=== PATIENT | female | born 1950 | race Caucasian/White ===

== ENCOUNTER 2016-07-20 23:23 | Observation (INO) ==
[2016-07-20 23:48] LABS: Basophils % 0.3 %; Eosinophils # 0.3 K/mcL (0.0-0.6); Eosinophils % 3.8 %; Hematocrit 35.3 % (35.3-44.9); Hemoglobin 10.9 g/dL (11.5-15.4); Immature Granulocytes % 0.1 % (0-4); Lymphocytes # 3.2 K/mcL (0.6-4.6); Lymphocytes % 40.3 %; Mean Corpuscular HGB Conc 30.9 g/dL (31.6-35.5); Mean Corpuscular Hemoglobin 26.5 pg (28.0-33.3); Mean Corpuscular Volume 85.9 fL (83.0-100.0); Mean Platelet Volume 9.5 fL (9.4-12.4); Monocytes # 0.5 K/mcL (0.0-1.3); Monocytes % 6.3 %; Neutrophils # 3.9 K/mcL (1.6-8.9); Platelet Count 261 K/mcL (140-400); Red Blood Count 4.11 M/mcL (3.82-4.97); Red Cell Distribution Width 14.3 % (11.5-14.5); Segmented Neutrophils % 49.2 %
[2016-07-20 23:58] LABS: Prothrombin Time 10.4 Seconds (9.4-12.1)
[2016-07-21] LABS: BUN/Creatinine Ratio 19 (6-26); Blood Urea Nitrogen 16 mg/dL (7-20); Calcium 9.2 mg/dL (8.6-10.8); Carbon Dioxide 20 mEq/L (19-29); Chloride 109 mEq/L (98-109); Glucose 118 mg/dL (70-99); Osmolality,Calculated 288 (280-300); Potassium 3.7 mEq/L (3.5-4.5); Sodium 138 mEq/L (136-145); eGFR For African Americans > 60 (> 60); eGFR For Non-African Americans > 60 (> 60)
[2016-07-21 00:01] LABS: Activated Partial Thrombo Time 26.8 Seconds (26.0-36.0)
--- NOTE | 2016-07-21 00:21 | Emergency Department Note ---
Disposition Clinical Impression: Atypical chest pain Disposition: Admitted As Inpatient Condition: Good Time of Disposition: 01:30 Chest Pain HPI - General Chief Complaint: ED Chest Pain Stated Complaint: chest pain//off and on since last night Time Seen by Provider: 07/20/16 23:43 Source: patient Limitations: no limitations Vital Signs Reviewed: Yes Nursing Notes Reviewed: Yes - History of Present Illness HPI Narrative: 66-year-old female presents complaining of left sided chest pain. She states that she is seen by Dr. Escobar and has been worked up for this chest pain recently. Last night she began experiencing sharp pain that went through to her back. It would last for 15 minutes or 1-2 hours and then subside. It returned intermittently throughout the night, causing sharp pain that took her breath away. It awoke her several times from her sleep. This morning she called her PCP and Dr. Escobar's office and was advised to seek care in the ER. The patient states that she came to town and the pain subsided so she waited to seek care. She states that the pain returned this evening and was worse. She took a Nitro SL about 1/2 hour [employer]PL[employer] which relieved the pain somewhat. The pain is a pressure in the left anterior chest. It goes through to her back and now is going down the left arm and up into the left neck. There is associated sob, ABREU and mild nausea with her pain. She denies dizziness, abdominal pain, fevers, chills, dysuria, diarrhea. She has a history of CVA in 2015 and she states that her ABREU feels similar to this episode. She has no history of AZ, but does have a family history of AZ in her mother at age 53. Severity scale (1-10): 4 - Related Data Home Medications Medication Instructions Recorded Confirmed Albuterol Sulfate [Albuterol 2 puff IH Q4HR PRN 03/21/15 07/21/16 Inhaler] Budesonide/Formoterol 160/4.5 2 puff IH BIDR 03/21/15 07/21/16 [Symbicort] Dexlansoprazole [Dexilant] 60 mg PO DAILY 03/21/15 07/21/16 Levothyroxine [Synthroid] 50 mcg PO DAILY 03/21/15 07/21/16 Metoprolol XL (24 HR) Succ [Toprol 25 mg PO DAILY 03/21/15 07/21/16 XL] Nitroglycerin [Nitrostat] 0.4 mg SL Q5-6MIN PRN 03/21/15 07/21/16 Ranitidine HCl [Zantac] 150 mg PO HS #0 04/04/15 07/21/16 Aspirin/Dipyridamole 1 each PO Q12H 05/12/15 07/21/16 [Aspirin-Dipyridam ER 25-200 mg] Topiramate [Topamax] 50 mg PO BID 05/12/15 07/21/16 Alprazolam [Xanax 1 MG Tablet] 1 mg PO BID PRN 03/08/16 07/21/16 Lovastatin [Mevacor] 40 mg PO DAILY 03/08/16 07/21/16 Sertraline [Zoloft] 100 mg PO DAILY 03/08/16 07/21/16 Allergies Allergy/AdvReac Type Severity Reaction Status Date / Time ibuprofen [From Motrin] Allergy Hives Verified 04/03/15 20:52 All systems ED: reviewed and negative except as stated. Chest Pain PMH - Past Medical History Medical history: Reports: asthma, coronary artery disease, hyperlipidemia, hypertension, syncope, TIA, other Surgical history: Reports: cancer surgery, cholecystectomy, hysterectomy, orthopedic, other, other Psychiatric history: Reports: anxiety, depression [employer] WORK[employer] history: Reports: no [employer] WORKER history - Social History Smoking Status: Former smoker Alcohol use: Reports: none Drug use: Reports: none Physical Exam General: Alert and in no acute distress Skin: Warm, dry, intact Head: Normocephalic and atraumatic Eye: PERRLA, EOMI Neck: Supple, trachea midline and no tenderness Cardiovascular: RRR, no murmur, normal perfusion, peripheral pulses equal b/l UE /LE. Tenderness to palpation of left anterior chest wall Respiratory: mild expiratory wheezing posteriorly on the right, no cough or respiratory distress GI: Soft, nontender, nondistended. Bowel sounds present Musculoskeletal: Muscle strength 5/5, no tenderness, swelling or deformity Neuro: A&O to person, place, time and situation. No focal deficits noted on exam Psychiatric: Cooperative and appropriate mood and affect - General Limitations: no limitations General appearance: alert Course Course Narrative: 66-year-old female presents complaining of left sided chest pain. She states that she is seen by Dr. Escobar and has been worked up for this chest pain recently. Last night she began experiencing sharp pain that went through to her back. It would last for 15 minutes and then subside. It returned intermittently throughout the night, causing sharp pain that took her breath away. It awoke her several times from her sleep. This morning she called her PCP and Dr. Escobar's office and was advised to seek care in the ER. The patient states that she came to town and the pain subsided so she waited to seek care. She states that the pain returned this evening and was worse. She took a Nitro SL about 1/2 hour [employer] which relieved the pain somewhat. The pain is a pressure in the left anterior chest. It goes through to her back and now is going down the left arm and up into the left neck. There is associated sob, ABREU and mild nausea with her pain. She denies dizziness, abdominal pain, fevers, chills, dysuria, diarrhea. She has a history of CVA in 2015 and she states that her ABREU feels similar to this episode. She has no history of AZ, but does have a family history with mother having an AZ at age 53. Exam unremarkable, patient in NAD. CP returned during examination. Will do CP workup. Continues to have intermittent CP. Will give ASA and SL nitro. Heart Score is 5. Can not r/o her heart as source of pain. Discussed with patient that she will most likely be admitted for CP r/o and observation overnight and see cardiology tomorrow. Discussed admission with hospitalist, patient will be admitted. Discussed admission with the patient and her who are agreeable to the plan. All questions were answered. - Reevaluation(s) Reevaluation #1: Patient continues to have intermittent chest pain going through to her back and down into her left arm. She describes them as pressure that feels like she twisted her shoulder. Time: 00:59 - Consultations Consultation #1: Discussed the patient's case with Dr. Encarnacion, who has accepted the patient for admission to the hospitalist service. Time: 01:10 Vital Signs Temperature 97.9 F 07/20/16 23:25 Pulse Rate 83 07/20/16 23:25 Respiratory Rate 18 07/20/16 23:25 Blood Pressure 175/85 07/20/16 23:25 O2 Sat by Pulse Oximetry 98 07/20/16 23:25 Temperature 98.1 F 07/21/16 02:18 Pulse Rate 65 07/21/16 02:18 Respiratory Rate 16 07/21/16 02:18 Blood Pressure 108/69 07/21/16 04:35 O2 Sat by Pulse Oximetry 95 07/21/16 02:18 Oxygen Delivery Oxygen Delivery Room Air Chest Pain - Medical Records Medical records reviewed: Yes I reviewed the patient's medical records. - Lab Data Lab results reviewed: Yes I reviewed the patient's lab results. Result diagrams: 07/20/16 23:38 07/20/16 23:38 Lab Results 07/20/16 07/20/16 07/20/16 Range/Units 23:38 23:38 23:38 WBC 8.0 (4.3-11.1) K/mcL RBC 4.11 (3.82-4.97) M/mcL Hgb 10.9 L (11.5-15.4) g/dL Hct 35.3 (35.3-44.9) % MCV 85.9 (83.0-100.0) fL MCH 26.5 L (28.0-33.3) pg MCHC 30.9 L (31.6-35.5) g/dL RDW 14.3 (11.5-14.5) % Plt Count 261 (140-400) K/mcL MPV 9.5 (9.4-12.4) fL Immature Gran % 0.1 (0-4) % Seg Neutrophils % 49.2 % Lymphocytes % 40.3 % Monocytes % 6.3 % Eosinophils % 3.8 % Basophils % 0.3 % Neutrophils # 3.9 (1.6-8.9) K/mcL Lymphocytes # 3.2 (0.6-4.6) K/mcL Monocytes # 0.5 (0.0-1.3) K/mcL Eosinophils # 0.3 (0.0-0.6) K/mcL Basophils # 0.0 (0.0-0.2) K/mcL PT 10.4 (9.4-12.1) Seconds INR 1.0 APTT 26.8 (26.0-36.0) Seconds Sodium 138 (136-145) mEq/L Potassium 3.7 (3.5-4.5) mEq/L Chloride 109 (98-109) mEq/L Carbon Dioxide 20 (19-29) mEq/L BUN 16 (7-20) mg/dL Creatinine 0.86 (0.57-1.11) mg/dL Est GFR ( Amer) > 60 (> 60) Est GFR (Non-Af Amer) > 60 (> 60) BUN/Creatinine Ratio 19 (6-26) Glucose 118 H (70-99) mg/dL Calculated Osmolality 288 (280-300) Calcium 9.2 (8.6-10.8) mg/dL Troponin I (0-0.03) ng/mL 07/20/16 Range/Units 23:38 WBC (4.3-11.1) K/mcL RBC (3.82-4.97) M/mcL Hgb (11.5-15.4) g/dL Hct (35.3-44.9) % MCV (83.0-100.0) fL MCH (28.0-33.3) pg MCHC (31.6-35.5) g/dL RDW (11.5-14.5) % Plt Count (140-400) K/mcL MPV (9.4-12.4) fL Immature Gran % (0-4) % Seg Neutrophils % % Lymphocytes % % Monocytes % % Eosinophils % % Basophils % % Neutrophils # (1.6-8.9) K/mcL Lymphocytes # (0.6-4.6) K/mcL Monocytes # (0.0-1.3) K/mcL Eosinophils # (0.0-0.6) K/mcL Basophils # (0.0-0.2) K/mcL PT (9.4-12.1) Seconds INR APTT (26.0-36.0) Seconds Sodium (136-145) mEq/L Potassium (3.5-4.5) mEq/L Chloride (98-109) mEq/L Carbon Dioxide (19-29) mEq/L BUN (7-20) mg/dL Creatinine (0.57-1.11) mg/dL Est GFR ( Amer) (> 60) Est GFR (Non-Af Amer) (> 60) BUN/Creatinine Ratio (6-26) Glucose (70-99) mg/dL Calculated Osmolality (280-300) Calcium (8.6-10.8) mg/dL Troponin I 0.00 (0-0.03) ng/mL - Radiology Data Radiology results reviewed: Yes I reviewed the patient's radiology results. Chest X-Ray 07/21/16 23:42 IMPRESSION: No acute process. D/ / Anila Lizarraga MD / Anila Lizarraga MD Interpreting Provider: Anila Lizarraga MD - EKG Data EKG attestation: Yes I reviewed and interpreted this EKG. EKG shows normal: sinus rhythm Rhythm: NSR When compared to previous EKG there are: no significant changes Interpretation: unchanged when compared to prior tracing (date) Heart Score - Score History: Highly Suspicious EKG: Normal Age: 45-65 Risk Factors: Equal/Greater than 3 risk factor or history of atherosclerotic disease Troponin: Less than normal limit HEART Score Total: 5 Attestation Statement - Attestation Attestation: For this encounter, I have reviewed the resident, [employer] WORKER, or PA documentation, treatment plan, and medical decision making; and I have had face to face time with this patient. 66-year-old female presents with chest pain intermittently over the past 24 hours. Patient states the pain is a pressure in the center of her chest. Patient reports the pain radiates to her back, into her neck and down the left arm. Patient states she has been following with Dr. Escobar regarding her cardiac care. She states she had a cardiac catheterization which revealed blockage of her coronary arteries in the past. Patient's initial troponin is negative. ECG shows a normal sinus rhythm of 69 without evidence of STEMI or ischemia. We will admit the patient to the hospitalist for further care and evaluation of her chest pain.
[2016-07-21] MEDS ORDERED: Aspirin 81 MG TAB.CHEW PO ONE ×2 (00:57→01:15)
[2016-07-21] MEDS ORDERED: Nitroglycerin 0.4 MG TAB.SUBL SL ONE (00:57)
[2016-07-21] MEDS: Nitroglycerin 0.4 MG TAB.SUBL SL ONE ×2 (01:14→01:19)
[2016-07-21] MEDS ORDERED: *HR* Enoxaparin 100 MG/ML SYRINGE SQ ONE (02:51)
--- NOTE | 2016-07-21 02:54 | Internal Med History&Physical ---
Date of Encounter: 07/21/16 Time of Encounter: 02:52 Assessment and Plan (1) Chest pain Current visit: Yes Status: Acute Will rule out acute coronary syndrome. Initial electrocardiogram shows no ST segment shifts. Initial troponin normal. Which are 2 more sets of cardiac markers. Cardiology service to see the patient. Her pain is somewhat concerning for angina especially in the setting of known moderate coronary disease 4 years ago and therefore I will give the patient one dose of Lovenox full dose until we trend troponin. Continue aspirin and beta sandra Qualifiers: Qualified Code(s): R07.9 - Chest pain, unspecified (2) Hypertension Current visit: No Status: Chronic Continual home blood pressure medication Qualifiers: Hypertension type: essential hypertension Qualified Code(s): I10 - Essential (primary) hypertension Internal Medicine - H&P: HPI Chief complaint: chest pain History of present illness: Ms. Bocanegra is a 66 year old female with past medical history of coronary artery disease where the coronary angiogram in 2012 showing a single vessel disease from 50 to 60% stenosis presents to the emergency room today with chest pain. While the patient was sitting down she started experiencing left shoulder pain radiating to left arm initially thought it was [place]'s complete the pain however she noted no worsening of the pain with our movement. She noted some shortness of breath with the pain but denies any sweating or nausea.. She has taken sublingual nitroglycerin with 50% improvement in the pain. She was off pain during my interview. She denies any cough expectoration. No worsening of pain with inspiration. She denies getting chest pain with exertion. Past Med Surg Social Fam HX - Past Medical History Medical history: asthma, coronary artery disease, hyperlipidemia, hypertension, syncope, TIA, other Psychiatric history: anxiety, depression - Past Surgical History Surgical History: cancer surgery, cholecystectomy, hysterectomy, orthopedic, other, other - Social History Smoking Status: Former smoker Smokeless Tobacco Status: No Alcohol use: none Drug use: none - Family History Brother Living Status: Age at : 56 Cause of : Brain Tumor Sister Living Status: Age at : 71 Cause of : Pneumonia Mother Living Status: Age at : 53 Cause of : NC Hx Family Cardiac Disorders: Yes Hx Family Respiratory Disorders: Yes Hx Family Endocrine Disorder: Yes (DIABETES) Father Living Status: Age at : 53 Cause of : Emphysema Hx Family Cardiac Disorders: Yes Hx Family Respiratory Disorders: Yes Hx Family Endocrine Disorder: Yes Internal Medicine - H&P: Meds Albuterol Sulfate [Albuterol Inhaler] 2 puff IH Q4HR PRN 03/21/15 [History] Budesonide/Formoterol 160/4.5 [Symbicort] 2 puff IH BIDR 03/21/15 [History] Dexlansoprazole [Dexilant] 60 mg PO DAILY 03/21/15 [History] Levothyroxine [Synthroid] 50 mcg PO DAILY 03/21/15 [History] Metoprolol XL (24 HR) Succ [Toprol XL] 25 mg PO DAILY 03/21/15 [History] Nitroglycerin [Nitrostat] 0.4 mg SL Q5-6MIN PRN 03/21/15 [History] Ranitidine HCl [Zantac] 150 mg PO HS #0 04/04/15 [History] Aspirin/Dipyridamole [Aspirin-Dipyridam ER 25-200 mg] 1 each PO Q12H 05/12/15 [ History] Topiramate [Topamax] 50 mg PO BID 05/12/15 [History] Alprazolam [Xanax 1 MG Tablet] 1 mg PO BID PRN 03/08/16 [History] Lovastatin [Mevacor] 40 mg PO DAILY 03/08/16 [History] Sertraline [Zoloft] 100 mg PO DAILY 03/08/16 [History] Allergies ibuprofen [From Motrin] Allergy (Verified 04/03/15 20:52) Hives All Systems PM: A 10-system review of systems was performed and is negative for pertinent findings except as documented above in the HPI. Review of systems: 10 point review of systems is negative except for HPI - Constitutional Vitals: Temp Pulse Resp BP Pulse Ox 98.1 F 65 16 116/71 95 07/21/16 02:18 07/21/16 02:18 07/21/16 02:18 07/21/16 02:18 07/21/16 02:18 Exam: Gen.: patient is alert oriented times 3 kn in distress. Cardiac: normal S1 S2 no additional sounds are murmurs chest: clears auscultation bilaterally abdomen: soft nontender nondistended neck no JVD pupil 3 mm reactive Internal Med - H&P Results - Labs CBC & Chem 7: 07/20/16 23:38 07/20/16 23:38 - Impressions ITS Impressions Chest X-Ray 07/21/16 23:42 IMPRESSION: No acute process. D/ / Anila Lizarraga MD / Anila Lizarraga MD Interpreting Provider: Anila Lizarraga MD
[2016-07-21] MEDS ORDERED: ALPRAZolam 1 MG TABLET PO PRN (02:59)
[2016-07-21] MEDS: Nitroglycerin 0.4 MG TAB.SUBL SL SCH ×2 (04:29→08:02)
[2016-07-21] MEDS ORDERED: *HR* Enoxaparin 40 MG/0.4 ML SYRINGE SQ SCH (07:00)
[2016-07-21] MEDS ORDERED: Aspirin Enteric Coated 325 MG Tablet PO SCH (09:00)
[2016-07-21] MEDS ORDERED: Metoprolol XL (24 HR) Succ 25 MG TAB.ER.24H PO SCH (09:00)
[2016-07-21] MEDS ORDERED: (Dexlansoprazole [Dexilant] 60 MG) PO SCH (09:00)
[2016-07-21] MEDS ORDERED: Topiramate 25 MG TABLET PO SCH (09:00)
--- NOTE | 2016-07-21 09:25 | Cardiology Consult Note ---
Date of Encounter: 07/21/16 Time of Encounter: 08:30 Assessment and Plan (1) Atypical chest pain Current Visit: Yes Status: Acute Per cardiology: -Patient with atypical chest pain that occured at rest and lasted days. Patient had nuclear stress test September 2015 which was negative for ischemia. (CALLI) -Chest x-ray with no acute process. (CALLI) -Patient has known history of chest pressure that she has been following with Dr. Escobar. Patient currently on beta sandra. (CALLI) -Will order echocardiogram and D.Dimer. (CALLI) D-Dimer elevated in the 1400's, will check CT to r/o PE per discussion with Dr. Rolly Williamson (JT) -Further recommendations pending echocardiogram results. (CALLI) -Discussed and reviewed with Dr.John Williamson. (CALLI) (2) Elevated d-dimer Current Visit: Yes Status: Acute Per Cardiology: Again, d-dimer elevated in the 1400s. We'll check CT to rule out PE. Patient clinically stable with no hypoxia. (JT) (3) Coronary artery disease Current Visit: No Status: Chronic Per Cardiology: History of nonobstructive CAD. Last heart catheterization January 2013 showed mid LAD 40%, mid circumflex 20-30%, OM1 30-40%, ramus 50-60%, and mid RCA 20% stenosis. Patient had abnormal stress test at that time. Recent stress test negative for ischemia September 2015. On statin, asa, and beta sandra. (JT) Qualifiers: Coronary Disease-Associated Artery/Lesion type: robinson artery [place] vs. transplanted heart: unspecified whether robinson or transplanted heart Associated angina: angina presence unspecified Qualified Code(s): I25.10 - Atherosclerotic heart disease of robinson coronary artery without angina pectoris (4) Hypertension Current Visit: No Status: Chronic Per cardiology: -Patient with history of hypertension. Patient currently on beta sandra. (CALLI) -BPs this admission 100-120s systolic and 60-70s diastolic. (CALLI) -BPs currently stable. (CALLI) -Continue with current regimen. (CALLI) Qualifiers: Hypertension type: essential hypertension Qualified Code(s): I10 - Essential (primary) hypertension Discussion w patient/family: The assessment and plan as outlined above was discussed with the patient and/or family members who expressed understanding and agreement. All questions were answered. Thank you for involving us in the care of your patient. Please call with any questions. Discussed and reviewed with Dr.John Williamson. History of Present Illness Consult date: 07/21/16 Requesting physician: Derick Encarnacion Consult reason: chest pain Chief complaint: chest pain History of present illness: Ms. Bocanegra is a 66 year old female who presented to the ER yesterday evening with chest pain. Patient has been having pain since 07/19/2016 evening. Patient states she felt the pain was more "muscle pain," until yesterday evening when the pain became worse and radiated to her back and left shoulder blade. Patient denies any aggravating factors. Patient states she took a nitro sublingual at home and it did not relieve the pain. Patient states the ER gave her a second nitro, which relieved pain. Patient currently chest pain free. Patient states she was recently given nitro by the nurses on the floor for chest pain. (CALLI) She is a relevant past medical history of nonobstructive CAD, hyperlipidemia, hypertension, back pain, anxiety, Magallanes's esophagus, asthma, TIA. Patient reports for chronic midsternal chest pressure occurs one to 2 times per week and unchanged in frequency. She reports a squeezing sensation usually occurs at rest. Patient did have some midsternal chest soreness with palpation today. Again, with concerns now of left-sided shoulder and back pain-- she reports these episodes did not occur with her chronic chest pain symptoms. She describes as a stabbing sensation is intermittent over the past few days. All episodes have also occurred at rest. She follows with Dr. Escobar with cardiology. Denies any recent fever, chills, nausea, vomiting, diarrhea. Denies any cough. She denies any increased fatigue or dyspnea on exertion recently. (JT ) Past Med Surg Social Fam HX - Past Medical History Attestation: Yes The following information was validated with the patient. Source: patient, old records reviewed, obtained from family Medical history: asthma, coronary artery disease, hyperlipidemia, hypertension, syncope, TIA, other Psychiatric history: anxiety, depression - Past Surgical History Surgical History: cancer surgery, cholecystectomy, hysterectomy, orthopedic, other, other - Social History Smoking Status: Former smoker Smokeless Tobacco Status: No Alcohol use: none Drug use: none - Family History Brother Living Status: Age at : 56 Cause of : Brain Tumor Sister Living Status: Age at : 71 Cause of : Pneumonia Mother Living Status: Age at : 53 Cause of : CA Hx Family Cardiac Disorders: Yes Hx Family Respiratory Disorders: Yes Hx Family Endocrine Disorder: Yes (DIABETES) Father Living Status: Age at : 53 Cause of : Emphysema Hx Family Cardiac Disorders: Yes Hx Family Respiratory Disorders: Yes Hx Family Endocrine Disorder: Yes Medications and Allergies Albuterol Sulfate [Albuterol Inhaler] 2 puff IH Q4HR PRN 03/21/15 [History] Budesonide/Formoterol 160/4.5 [Symbicort] 2 puff IH BIDR 03/21/15 [History] Dexlansoprazole [Dexilant] 60 mg PO DAILY 03/21/15 [History] Levothyroxine [Synthroid] 50 mcg PO DAILY 03/21/15 [History] Metoprolol XL (24 HR) Succ [Toprol XL] 25 mg PO DAILY 03/21/15 [History] Nitroglycerin [Nitrostat] 0.4 mg SL Q5-6MIN PRN 03/21/15 [History] Ranitidine HCl [Zantac] 150 mg PO HS #0 04/04/15 [History] Aspirin/Dipyridamole [Aspirin-Dipyridam ER 25-200 mg] 1 each PO Q12H 05/12/15 [ History] Topiramate [Topamax] 50 mg PO BID 05/12/15 [History] Alprazolam [Xanax 1 MG Tablet] 1 mg PO BID PRN 03/08/16 [History] Lovastatin [Mevacor] 40 mg PO DAILY 03/08/16 [History] Sertraline [Zoloft] 100 mg PO DAILY 03/08/16 [History] Allergies ibuprofen [From Motrin] Allergy (Verified 04/03/15 20:52) Hives All Systems Review: A 10-system review of systems was performed and is negative for pertinent findings except as documented above in the HPI. - Cardiovascular Cardiovascular: chest pain at rest, leg edema - Musculoskeletal Musculoskeletal: back pain Physical Examination Vital Signs, Last 4 Hours Temp Pulse Resp BP Pulse Ox 07/21/16 08:22 14 96 07/21/16 08:01 65 16 128/73 07/21/16 07:29 97.6 F 84 17 104/61 94 L General: Conversant, No Apparent Distress HEENT: Atraumatic, Normocephaly, Mucus Membranes Moist Neck: No JVD Cardiac: Reg Rate and Rhythm, Normal S1 and S2, No Murmur Lungs: Normal Breath Sounds, No Wheeze, Rales, Rhonchi Neuro: Alert and responsive Abdomen: Soft, Non-Tender Skin: No rashes noted on visualized skin Musculoskeletal: No Chest Wall Tenderness Extremities: No Clubbing, No Cyanosis, Normal Pulses, Other (Mild bilateral non- pitting pedal edema. ) Results 07/20/16 23:38 07/20/16 23:38 Lab Results Laboratory Tests 07/20/16 07/20/16 07/21/16 23:38 23:38 09:19 INR 1.0 D-Dimer 1404 H Troponin I 0.00 ITS Impressions Chest X-Ray 07/21/16 23:42 IMPRESSION: No acute process. D/ / Anila Lizarraga MD / Anila Lizarraga MD Interpreting Provider: Anila Lizarraga MD Active Medications Albuterol Sulfate (Albuterol Inhaler) 2 puff IH [id number] [facility] Stop: 01/20/17 02:49 Last Admin: 07/21/16 08:19 Dose: 2 puff Alprazolam (Xanax) 1 mg PO BID PRN; Protocol PRN Reason: Anxiety Stop: 01/20/17 03:00 Budesonide/Formoterol Fumarate (Symbicort) 2 puff IH BIDR [facility] PRN Reason: Protocol Stop: 01/20/17 10:01 Last Admin: 07/21/16 08:19 Dose: 2 puff Dipyridamole/Aspirin (Aggrenox 25mg-200mg) 1 cap PO Q12H [facility] Stop: 01/20/17 03:01 Last Admin: 07/21/16 04:23 Dose: 1 cap Levothyroxine Sodium (Synthroid) 50 mcg PO DAILY [facility] Stop: 01/20/17 09:01 Last Admin: 07/21/16 09:44 Dose: 50 mcg Lovastatin (Mevacor) 40 mg PO DAILY JOHN Stop: 01/20/17 09:01 Last Admin: 07/21/16 09:45 Dose: 40 mg Metoprolol Succinate (Toprol Xl) 25 mg PO DAILY JOHN Stop: 01/20/17 09:01 Last Admin: 07/21/16 09:45 Dose: 25 mg Nitroglycerin (Nitroglycerin) 0.4 mg SL Q5MIN JOHN Stop: 01/20/17 02:49 Last Admin: 07/21/16 08:02 Dose: 0.4 mg Omeprazole (Prilosec) 20 mg PO HS JOHN Stop: 01/20/17 21:01 Pharmacy Profile Note (Patient Taking Own Medication) 1 each PO DAILY JOHN Stop: 01/20/17 09:01 Last Admin: 07/21/16 09:45 Dose: Not Given Sertraline HCl (Zoloft) 100 mg PO DAILY JOHN Stop: 01/20/17 09:01 Last Admin: 07/21/16 09:45 Dose: 100 mg Topiramate (Topamax) 50 mg PO BID JOHN Stop: 01/20/17 09:01 Last Admin: 07/21/16 09:45 Dose: 50 mg - Imaging and Cardiology Chest Xray: report reviewed Echo: pending - EKG Interpretation EKG results cardiology: personally reviewed, normal ECG, sinus rhythm, other ( Telemetry reviewed with average heart rate 67, sinus rhythm. Minimum heart rate 51 at 0546.) Consult Discharge Plan - Plan Referrals: Anastasiya Childress MD [Primary Care Provider] -
[2016-07-21] MEDS ORDERED: Budesonide/Formoterol 160/4.5 MDI IH SCH (10:00)
--- NOTE | 2016-07-21 10:44 | Electrocardiograph Report ---
[place] [id number] Test Date: 2016-07-20 Pat Name: Sosa Bocanegra Department: 103 Room: 3B23 Gender: F [employer]: : 1950 Requested By: Rolly Ponce Order Number: [id number] Reading MD: Anastasiya Williamson Measurements Intervals [place] Rate: 69 P: 44 VT: 176 QRS: -13 QRSD: 97 T: 26 QT: 379 QTc: 398 Interpretive Statements SINUS RHYTHM MINIMAL VOLTAGE CRITERIA FOR LVH, CONSIDER NORMAL VARIANT Electronically Signed On 07-21-2016 10:42:38 EST by Anastasiya Williamson
[2016-07-21 11:57] VITALS: BP 133/78
--- NOTE | 2016-07-21 14:34 | ECHO - Doppler Report ---
Echocardiogram Name: Sosa Bocanegra Date of Study: 07/21/2016 Date: 1950 Ht: 62.0 in Medical Record#: [id number] Age: 66 Wt: 222.0 lb Gender: Female BSA: 2 Order #: [id number] Location: [facility] Room #: 3B23 Reading Physician: Keith Escobar DO, QUINTEN, JOHNY MAYNARD [place]: TOM BarcenasT, RDJOHANNA Ordering Physician: Hattie Macias CNP Primary Physician: Anastasiya Childress MD Indications: Chest pain Impressions: Technically sub-optimal due to poor echocardiographic windows. LVEF 60-65%. Normal LV chamber size, wall thickness and function. Normal right ventricular structure and function. Mild left ventricular diastolic dysfunction. No evidence of pulmonary hypertension. No significant valvular dysfunction. Left Ventricular Wall Motion: Rest Echo Findings All wall segments showed normal motion. Findings: Study Quality * Technically sub-optimal due to poor echocardiographic windows. ECG Findings * Normal sinus rhythm. Left Ventricle * LVEF 60-65%. * Normal LV chamber size, wall thickness and function. * Mild left ventricular diastolic dysfunction. Right Ventricle * Normal right ventricular structure and function. Left Atrium * Mildly dilated left atrium. Right Atrium * Normal right atrial size. Interatrial Septum * Interatrial septum not well evaluated. Aortic Valve * Aortic valve not well visualized. * No aortic regurgitation. * No aortic stenosis. Mitral Valve * Normal mitral valve structure and function. * No mitral regurgitation. * No mitral stenosis. Tricuspid Valve * Normal tricuspid valve structure and function. * Trace tricuspid regurgitation. * No evidence of pulmonary hypertension. Pulmonic Valve * Pulmonic valve not well visualized. Aorta * Normally sized aortic root. Pericardium * The pericardium appears normal. IVC * Normal IVC dimensions and inspiratory collapse. Pulmonary Artery * Pulmonary artery not well visualized. History Hypertension Hypercholesteremia Family History of CAD 2015 a Previous Echo was performed. Measurements: BP: 133/ 78 2D Normal Values IVSd: .90 cm 0.6 - 1.0 cm LVIDd: 4.60 cm 3.7 - 5.6 cm LVPWd: .80 cm 0.6 - 1.1 cm LVIDs: 2.80 cm 1.5 - 3.6 cm AO: 2.30 cm < 4.0 cm LA: 3.10 cm 2.0 - 4.0cm %FS: 39.10 cm >25 % LA volume: 43 Mitral Valve Peak E:.73 m/sec Peak A:.86 m/sec E/A Ratio:0.8 Tricuspid Valve TV Regurg Peak Grad: 21.00mmHg TV Regurg Peak Timmy: 2.30m/sec Updated by Keith Escobar DO, QUINTEN, CAESAR, JOHNY on 07/21/2016 2:27:07 PM electronically signed on 07/21/2016 2:28:29 PM with status of Final Wall Motion [place]: 1=Normal, 2=Hypokinesis, 3=Akinesis, 4=Dyskinesis, 5=Aneurysmal, 6=Hyperkinetic, X=Not Visualized (Blank)=Missing
--- NOTE | 2016-07-21 15:05 | Event Note ---
Date of Encounter: 07/21/16 Time of Encounter: 15:00 - Cardiology Event Note CT scan negative for PE, showed small groundglass opacity right lower lobe-- discussed with primary service. Further recommendations per primary team. Echo showed EF preserved 6065%, no significant valvular dysfunction, no segmental wall motion abnormalities. Will add Imdur 30 mg by mouth daily. Cardiology signing off, re-consult as needed, follow-up in outpatient setting-- scheduled.
--- NOTE | 2016-07-21 15:21 | Discharge Summary ---
Date of Encounter: 07/21/16 Time of Encounter: 15:00 - Discharge Diagnosis (1) Atypical chest pain Priority: Primary Status: Resolved Comments: Patient denied chest pain at time of discharge. Chest x-ray negative. Chest CTA negative for acute processes. Echocardiogram unremarkable with ejection fraction of 60-65% and mild diastolic dysfunction. Seen and evaluated by cardiology who cleared her for outpatient follow-up and added Imdur to her regimen. (2) Elevated d-dimer Priority: Primary Status: Ruled-out (3) DVT prophylaxis Priority: Primary Status: Acute Comments: Observation patient. Up ad fabiano. (4) Asthma Priority: Secondary Status: Chronic Comments: No acute exacerbation Qualifiers: Asthma severity: unspecified severity Asthma complication type: uncomplicated Qualified Code(s): J45.909 - Unspecified asthma, uncomplicated (5) COPD (chronic obstructive pulmonary disease) Priority: Secondary Status: Chronic Comments: No acute exacerbation. Former tobacco abuse. Qualifiers: COPD type: unspecified COPD Qualified Code(s): J44.9 - Chronic obstructive pulmonary disease, unspecified (6) Carotid arterial disease Priority: Secondary Status: Chronic Comments: Carotid duplex from 02/27/16 impressions revealing right distal ICA with severe 60-79% stenosis with left system nonstenotic plaque. Recommend follow-up outpatient, continue statin, low cholesterol diet Qualifiers: Laterality: unspecified laterality Qualified Code(s): I77.9 - Disorder of arteries and arterioles, unspecified (7) Coronary artery disease Priority: Secondary Status: Chronic Qualifiers: Coronary Disease-Associated Artery/Lesion type: lummi artery [place] vs. transplanted heart: unspecified whether lummi or transplanted heart Associated angina: angina presence unspecified Qualified Code(s): I25.10 - Atherosclerotic heart disease of lummi coronary artery without angina pectoris (8) Hyperlipidemia Priority: Secondary Status: Chronic Qualifiers: Hyperlipidemia type: unspecified Qualified Code(s): E78.5 - Hyperlipidemia , unspecified (9) Hypertension Priority: Secondary Status: Chronic Comments: Controlled, follow-up outpatient Qualifiers: Hypertension type: essential hypertension Qualified Code(s): I10 - Essential (primary) hypertension (10) PVD (peripheral vascular disease) Priority: Secondary Status: Chronic (11) Morbid obesity with BMI of 40.0-44.9, adult Priority: Secondary Status: Chronic - Discharge Medications Prescriptions: Isosorbide MONOnitrate (24 HR) [Imdur] 30 mg PO DAILY #30 tab.er.24h Home Medications: Albuterol Sulfate [Albuterol Inhaler] 2 puff IH Q4HR PRN 03/21/15 [History] Budesonide/Formoterol 160/4.5 [Symbicort] 2 puff IH BIDR 03/21/15 [History] Dexlansoprazole [Dexilant] 60 mg PO DAILY 03/21/15 [History] Levothyroxine [Synthroid] 25 mcg PO DAILY 03/21/15 [History] Metoprolol XL (24 HR) Succ [Toprol XL] 25 mg PO DAILY 03/21/15 [History] Nitroglycerin [Nitrostat] 0.4 mg SL Q5-6MIN PRN 03/21/15 [History] Ranitidine HCl [Zantac] 150 mg PO HS #0 04/04/15 [History] Aspirin/Dipyridamole [Aspirin-Dipyridam ER 25-200 mg] 1 tab PO Q12H 05/12/15 [ History] Topiramate [Topamax] 25 mg PO BID 05/12/15 [History] Alprazolam [Xanax 1 MG Tablet] 1 mg PO BID PRN 03/08/16 [History] Lovastatin [Mevacor] 40 mg PO DAILY 03/08/16 [History] Sertraline [Zoloft] 100 mg PO DAILY 03/08/16 [History] Amlodipine [Norvasc] 10 mg PO DAILY 07/21/16 [History] Isosorbide MONOnitrate (24 HR) [Imdur] 30 mg PO DAILY #30 tab.er.24h 07/21/16 [ Rx] Allergies/Adverse Reactions: Allergies ibuprofen [From Motrin] Allergy (Verified 04/03/15 20:52) Hives gabapentin Adverse Reaction (Verified 07/21/16 12:59) Confusion pregabalin [From Lyrica] Adverse Reaction (Verified 07/21/16 12:59) See Comments PATIENT GAINED WEIGHT AND WATER WEIGHT Procedures/tests Complete & Pending: Procedures Performed prior 72 hours Category Date Time Status CT angio chest [CT] Routine Cat Scan 07/21/16 11:30 Draft EV echocardiogram Routine Y 07/21/16 09:03 Completed Date of admission: 07/21/16 01:34 Primary care physician: Anastasiya Cabrera Consults: 07/21/16 02:47 Consult to Cardiology [CONS] Routine Comment: neg stress 09/26. NPO pending recommendations Consulting Provider: Yael Barrientos Reason for Consult: chest pain Call Completed: No Discharging clinician: Erika Daly Anticipated date of discharge: 07/21/16 - Patient Status Disposition: Home, Self-Care Condition: Good Functional capacity at discharge: independent ambulation Overall status at discharge: patient is back to baseline - Discharge Instructions Follow Up With: Anastasiya Childress MD [Primary Care Provider] - Keith Escobar DO [Partnered Physician] - Additional Instructions: Follow-up with primary care provider in one to 2 weeks. Follow-up with cardiology in 2-3 weeks - Diet and Activity Activity: increase activity as tolerated Diet: low fat, low cholesterol, low salt diet Hospital course: Ms. Bocanegra is a 66 year old female with past medical history of CAD, hyperlipidemia, hypertension, former tobacco abuse. Patient presented to the emergency department chief complaint chest pain that started when she was sitting down and also incorporated left shoulder pain radiating to her left arm. Patient stating the pain was not worsened with movement and was associated with shortness of breath. She denied any diaphoresis or nausea. Patient took sublingual nitroglycerin with 50% improvement in her pain. Patient denied any chest pain with exertion, cough. Workup in the emergency department unremarkable. Chest x-ray negative. Patient was admitted to the hospitalist service for further evaluation and management. Cardiology was brought on board who recommended an echocardiogram. Echocardiogram unremarkable with ejection fraction of 60-65% and mild diastolic dysfunction. Patient euvolemic on examination during this admission. D-dimer is elevated to chest CT ruled out a PE. CTA also revealing small groundglass of opacities likely consistent with atelectasis, follow-up outpatient, no acute processes. Troponins were negative 3. Patient had a negative stress test on September 2015. Patient also had a left heart catheter in January 2013 revealed nonobstructive CAD. Continue statin, aspirin, beta sandra. Imdur was added to her regimen by cardiology. ACS ruled out. She was discharged home in stable condition with close outpatient follow-up recommended. ITS Impressions Chest CTA 07/21/16 11:30 IMPRESSION: 1. No evidence of pulmonary embolism. 2. Small ground-glass opacity medially in the right lower lobe, favored to represent atelectasis related to a prominent osteophyte. 3. Coronary atherosclerosis. D/ / 07/21/2016 12:19:09 Claudio Narvaez MD / Julia Brooks Interpreting Provider: Claudio Narvaez MD Chest X-Ray 07/21/16 23:42 IMPRESSION: No acute process. D/ / Anila Lizarraga MD / Anila Lizarraga MD Interpreting Provider: Anila Lizarraga MD Echocardiogram impressions: Technically suboptimal due to poor echocardiographic windows. LVEF 60-65%. Normal LV chamber size, wall thickness and function. Normal right ventricular structure and function. Mild left ventricle diastolic dysfunction. No evidence of pulmonary hypertension. No significant valvular dysfunction. - Time Spent with Patient Total time spent providing and/or coordinating discharge services: - Constitutional Vitals: Temp Pulse Resp BP Pulse Ox 97.8 F 88 18 133/78 100 07/21/16 11:55 07/21/16 11:55 07/21/16 11:55 07/21/16 11:55 07/21/16 11:55 General appearance: Present: A&O X 3, morbidly obese, pleasant, no acute distress, answers questions appropriately - Head Head exam: Present: atraumatic, normocephalic - Eye Eye exam: Present: PERRL, conjuntiva pink, sclera anicteric Pupils: Present: PERRL - Neck Neck exam general surgery: Present: supple, trachea midline. Absent: lymphadenopathy - Respiratory Respiratory exam: Present: CTAB. Absent: accessory muscle use, rales, respiratory distress, rhonchi, wheezes - Cardiovascular Cardiovascular exam: Present: RRR, +S1, +S2. Absent: diastolic murmur, gallop, rubs, systolic murmur - GI/Abdominal GI/Abdominal exam: Present: normal bowel sounds, soft, no peritoneal signs. Absent: distended, tenderness - Extremities Exam Extremities exam: Present: warm, radial pulses palpable and symetrical. Absent : calf tenderness, cyanotic, pedal edema - Neurological Exam Neurological exam: Present: alert, CN II-XII intact, normal gait, oriented X3, no focal deficits, strengths equal and symetr throughout. Absent: pronater drift, facial droop, speech deficit - Skin Skin exam: Present: dry, intact, normal color, warm
[2016-07-24 12:44] LABS: CK-MB (CK isoenzymes) 0 % (0-4); CK-MM (CK-isoenzymes) 100 % (96-100)
[2016-07-26 07:49] LABS: CK Total (Ck Isoenzymes) 64 U/L (20-180); CK-BB (CK isoenzymes) 0 % (0-0)
== END 2016-07-21 16:34 | disposition home or self-care (01) ==
LOC: UNDODISOB → 3BNU 23:23 → EMEROO 23:23 → 3BNU 07-21 02:00
PROVIDERS: ADMIT Hospitalist; ATTEND Nurse Practitioner Family